=== PATIENT | female | born 1955 | race Caucasian/White ===

== ENCOUNTER 2023-11-09 08:28 | Outpatient (CLI) | payer OTHER ==
[~2023-11-09 08:28] MED LIST: COZAAR50 MG; PROTONIX40 MG; SIMVASTATIN5 MG; TOPROL XL200 MG; [UNRECOGNIZED DRUG - OTHER]
== END 2023-11-09 08:32 | disposition home or self-care (01) ==
LOC: SONOGRAMA 08:28
PROVIDERS: ATTEND Pathology Anatomic Pathology
DX: D34 Benign neoplasm of thyroid gland (principal); E07.89 Other specified disorders of thyroid; E04.1 Nontoxic single thyroid nodule